=== PATIENT | male | born 1950 | race Caucasian/White ===

== ENCOUNTER 2017-01-06 13:28 | Emergency (ER) | payer MEDICARE, OTHER ==
[2017-01-06] MEDS ORDERED: CYCLOBENZAPRINE HCL 10 MG TAB PO ONE (13:46)
[2017-01-06] MEDS ORDERED: HYDROcodone 10MG/APAP 325MG 1 EA TAB PO ONE (13:46)
[2017-01-06 13:47] VITALS: BP 152/82; TEMP 97.9; O2SAT 94
--- NOTE | 2017-01-06 13:49 | ED.PDOC ---
History of Present Illness - General Chief Complaint: Back Pain or Injury Stated Complaint: BACK PAIN Time Seen by Provider: 01/06/17 13:38 Source: patient, RN notes reviewed, Vital Signs reviewed Exam Limitations: no limitations - History of Present Illness Initial Comments: Patient comes in with c/o low back pain. He has a long history of back issues and reports it occasionally flares up on him. He thinks he has been doing too much lifting. He is having some pain and tingling down both legs but this is fairly typical for when his back hurts. No bowel or bladder incontinence. No leg weakness. Timing/Duration: 1-3 hours Quality/Severity: severe, radiation, sharpness Back Pain Location: lumbar spine, paraspinous muscles Back Pain Radiation: lower legs Method of Injury/Prior Injury: other - Chronic back issues, recently lifting too much. Improving Factors: immobilization Worsening Factors: movement Associated Symptoms: muscle spasms, tingling in legs/feet, lower back pain Allergies/Adverse Reactions: Allergies NO KNOWN ALLERGY Allergy (Verified 01/06/17 13:43) Home Medications: Ambulatory Orders Acetaminophen W/ Codeine [Tylenol W/ CODEINE #3] 1 ea PO Q6HRS PRN #12 Cyclobenzaprine HCl [Flexeril] 5 mg PO Q8HRS PRN #12 tab 01/06/17 Review of Systems - Review of Systems Constitutional: States: no symptoms reported EENTM: States: no symptoms reported Respiratory: States: no symptoms reported Cardiology: States: no symptoms reported Gastrointestinal/Abdominal: States: no symptoms reported Genitourinary: States: no symptoms reported Musculoskeletal: States: see HPI, back pain Skin: States: no symptoms reported Neurological: States: see HPI, tingling. Denies: numbness, paresthesia Endocrine: States: no symptoms reported Hematologic/Lymphatic: States: no symptoms reported Family Medical History - Family History Mother Family History: Unknown Physical Exam - Physical Exam General Appearance: Alert, Well Developed, Well Hydrated, Well Nourished, Other - uncomfortable, in obvious pain Neck Exam: non-tender, full range of motion, normal alignment, normal inspection Cardiovascular/Respiratory: regular rate, rhythm, no M/R/G, normal peripheral pulses, no JVD, normal breath sounds, no respiratory distress Peripheral Pulses: posterior tibialis,right: 2+, posterior tibialis,left: 2+ Back Exam: muscle spasm - Bilateral lumbar paraspinous muscles, vertebral tenderness - Lower lumbosacral spine Extremity Exam: no evidence of injury, normal range of motion, non-tender, no pedal edema Neurologic: no motor/sensory deficits, alert, normal mood/affect, oriented x 3, other - negative straight leg raise bilaterally Skin Exam: normal color, warm/dry Progress - Progress Progress: 01/06/17 14:18 Patient is feeling better after Ravia and Flexeril and would like to go home. Departure - Departure Clinical Impression: Low back pain radiating down leg Time of Disposition: 14:19 Disposition: Discharge to Home or Self Care Condition: Good Departure Forms: ED Discharge - Pt. Copy, Patient Portal Self Enrollment Instructions: DI for Back Pain With Sciatica Diet: resume usual diet Activity: increase activity as tolerated Prescriptions: Acetaminophen W/ Codeine [Tylenol W/ CODEINE #3] 1 ea PO Q6HRS PRN #12 PRN Reason: Pain -- Moderate To Severe Cyclobenzaprine HCl [Flexeril] 5 mg PO Q8HRS PRN #12 tab PRN Reason: Muscle Spasms Home Medications: Ambulatory Orders Acetaminophen W/ Codeine [Tylenol W/ CODEINE #3] 1 ea PO Q6HRS PRN #12 Cyclobenzaprine HCl [Flexeril] 5 mg PO Q8HRS PRN #12 tab 01/06/17
== END 2017-01-06 14:30 | disposition home or self-care (01) ==
LOC: ER 13:28
DX: M54.42 Lumbago with sciatica, left side (principal); M54.41 Lumbago with sciatica, right side

== ENCOUNTER → 2018-11-02 | Outpatient (CLI) | payer MEDICARE ==
--- NOTE | 2018-11-01 09:32 | RAD ---
EXAM DESCRIPTION: Chest,2 Views CLINICAL HISTORY: pre op COMPARISON: Previous chest x-ray December 24, 2008 TECHNIQUE: PA/lateral FINDINGS: Linear densities in the left upper lobe extending peripherally from the hilum having appearance consistent with fibrosis or bronchiectasis. Left paracardiac density is thought to represent rib cartilage calcification of the anterior end of the left fifth rib. Minimal scarring or discoid atelectasis in the medial left lung base behind the heart. Plate and screws of the lower C-spine. Few granulomas in the right mid and lower lung. Heart size is normal with normal pulmonary vascularity. No pleural effusion or pneumothorax. Lungs are clear with no consolidating infiltrate. Lateral view shows intact sternum and T-spine. IMPRESSION: No acute process is identified in the chest. Electronically signed by: Jone Pisano MD 11/01/2018 9:30 AM [facility]
== END ==
LOC: AMB 05:44 → EDSTATUS 08:00
PROVIDERS: ATTEND Surgery
DX: K40.90 Unilateral inguinal hernia, without obstruction or gangrene, not specified as recurrent (principal); Z53.8 Procedure and treatment not carried out for other reasons

== ENCOUNTER 2018-11-05 22:06 | Emergency (ER) | payer MEDICARE ==
[2018-11-05 22:21] VITALS: TEMP 98.3
--- NOTE | 2018-11-05 22:21 | ED.PDOC ---
History of Present Illness - General Time Seen by Provider: 11/05/18 22:17 Source: patient, RN notes reviewed, Vital Signs reviewed Additional Information: 68 YEAR OLD PRESENTS WITH CHEST PAIN LAST 30 MIN " FEEL LIKE INDIGESTION " IT IS LIMITED TO THE SUB STERNUM NO RADIATION BUT HE HAD FELT SHORT OF BREATH HE HAS HAD SIMILAR PROBLEM LAST WEEK HIS CAD RISK INCLUDE HEAVY SMOKING HYPERTENSION STRONG FAMILY HISTORY - History of Present Illness Timing/Duration: 1/2 hour Improving Factors: nothing Worsening Factors: nothing Associated Symptoms: chest pain Allergies/Adverse Reactions: Allergies NO KNOWN ALLERGY Allergy (Verified 01/06/17 13:43) Home Medications: Ambulatory Orders Acetaminophen W/ Codeine [Tylenol W/ CODEINE #3] 1 ea PO Q6HRS PRN #12 01/06/17 Cyclobenzaprine HCl [Flexeril] 5 mg PO Q8HRS PRN #12 tab 01/06/17 Review of Systems - Review of Systems Constitutional: States: no symptoms reported EENTM: States: no symptoms reported Respiratory: States: no symptoms reported Cardiology: States: no symptoms reported Gastrointestinal/Abdominal: States: no symptoms reported Genitourinary: States: no symptoms reported Skin: States: no symptoms reported Neurological: States: no symptoms reported Endocrine: States: no symptoms reported Hematologic/Lymphatic: States: no symptoms reported Past Medical History (General) - Patient Medical History Hx Asthma: No Hx of COPD: Yes Hx Cancer: No - Vaccination History Hx Tetanus, Diphtheria Vaccination: Yes Hx Influenza Vaccination: No Hx Pneumococcal Vaccination: No - Social History Hx Alcohol Use: Yes - FORMER Hx Substance Use: No Family Medical History - Family History Mother Family History: Unknown Physical Exam - Physical Exam General Appearance: Alert, Anxious Eye Exam: bilateral normal, bilateral abnormal EOM Ears, Nose, Throat: hearing grossly normal, normal ENT inspection, normal pharynx Neck: non-tender, full range of motion, supple Respiratory: chest non-tender, lungs clear, normal breath sounds, no respiratory distress, no accessory muscle use, respiratory distress, rhonchi Cardiovascular/Chest: normal peripheral pulses, regular rate, rhythm, no edema, no gallop, no JVD, no murmur Gastrointestinal/Abdominal: normal bowel sounds, non tender, soft, no organomegaly, abnormal bowel sounds Back Exam: normal inspection, no CVA tenderness, no vertebral tenderness Extremity: normal range of motion, non-tender, normal inspection 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, no motor/sensory deficits, alert, normal mood/affect, oriented x 3 Progress - Results/Orders Results/Orders: Laboratory Tests 11/05/18 11/06/18 22:35 00:50 WBC 6.6 RBC 4.73 Hgb 13.8 L Hct 41.9 L MCV 88.6 MCH 29.1 MCHC 33.0 RDW 13.7 Plt Count 283 MPV 6.7 L Absolute Neuts (auto) 4.20 Absolute Lymphs (auto) 1.50 Absolute Monos (auto) 0.60 Absolute Eos (auto) 0.20 Absolute Basos (auto) 0.10 Neutrophils % 64.0 Lymphocytes % 22.2 Monocytes % 9.8 H Eosinophils % 3.2 Basophils % 0.8 PT 10.0 INR 1.00 PTT (SP) 29.5 Sodium 137 Potassium 3.4 L Chloride 104 Carbon Dioxide 27 Anion Gap 9.4 L BUN 12 Creatinine 0.76 BUN/Creatinine Ratio 15.8 Random Glucose 105 Serum Osmolality 273.9 L Calcium 8.7 Magnesium 1.8 Total Bilirubin 0.4 Direct Bilirubin < 0.1 Indirect Bilirubin 0.3 AST 22 ALT 17 Alkaline Phosphatase 47 Creatine Kinase 191 H 185 H CK-MB (CK-2) 4.1 4.0 CK-MB (CK-2) % 2.15 2.16 Troponin I 0.02 0.03 Serum Total Protein 6.5 Albumin 3.6 Globulin Cancelled Albumin/Globulin Ratio Cancelled 1.45 AM PT LABS WERE REVIEWED SECOND SET OF TROPONIN IS 0.03 FROM O.02 RECOMMENDED FOR HIM TO BE TRANSFERED TO [facility] FOR A CARDIOLOGY CONSULTATION AND STRESS TEST IN THE MORNING BUT PATIENT DECLINED STATING HE WAS NOT GOING TO GO THERE TONIGHT AND HE WOULD RATHER GO IN THE MORNING ASK HIS TO DRIVE HIM UP THERE HE HAS REMAINED PAIN FREE IN THE ED I HAVE EXPLAINED TO HIM THE POSSIBILITY OF ACUTE [place] SUDDEN AND GRAVE COMP LICATIONS OF THIS CONDITION HE UNDERSTANDS WOULD LIKE TO LEAVE AMA FOR NOW WE WILL PROVIDE A NITROGLYCERIN TRANS DERMAL PATCH AND ADVISED HIM TO RETURN IF HE DEVELOPS ANY SYMPTOMS OF CHEST PAIN OT SHORTNESS OF BREATH - EKG/XRAY/CT EKG: Sinus, nonspecific ST T wave Ch Comments: 22.12 ekg nsr 87 / min non specific st t changes No acute Injury Ischem Departure - Departure Clinical Impression: Chest pain Time of Disposition: 01:51 Disposition: Left Against Medical Advice Condition: Good Home Medications: Ambulatory Orders Acetaminophen W/ Codeine [Tylenol W/ CODEINE #3] 1 ea PO Q6HRS PRN #12 01/06/17 Cyclobenzaprine HCl [Flexeril] 5 mg PO Q8HRS PRN #12 tab 01/06/17
[2018-11-05] MEDS ORDERED: NITROGLYCERIN 0.4 MG 25 EA TAB SL ONE ×2 (22:24→22:42)
[2018-11-05] MEDS ORDERED: ASPIRIN (CHEWABLE) 81 MG TAB PO ONE (22:24)
[2018-11-05] MEDS ORDERED: KETOROLAC TROMETHAMINE INJ 30 MG/ML VIAL IV ONE (22:38)
[2018-11-05] MEDS ORDERED: ALUM & MAG HYDROX-SIMETHICONE 30 ML, LIDOCAINE VISCOUS 2% 15 ML PO ONE ×2 (22:38)
[2018-11-05] MEDS ORDERED: SUCRALFATE 1 GM/10 ML 1 GM UD PO ONE (22:39)
[2018-11-05] MEDS ORDERED: LIDOCAINE HCL 2% (MOUTH-THROAT) 15 ML UD ONE (23:01)
[2018-11-05] MEDS ORDERED: ALUM & MAG HYDROX-SIMETHICONE 30 ML UD ONE (23:01)
--- NOTE | 2018-11-05 23:31 | RAD ---
EXAM DESCRIPTION: Chest,1 View CLINICAL HISTORY: 68 years Male CHEST PAIN COMPARISON: 11/01/2018 FINDINGS: The cardiomediastinal silhouette appears unremarkable. No consolidating infiltrates or pleural effusions. No pneumothorax. Degenerative changes in the thoracic spine. Post surgical changes in the cervical spine. IMPRESSION: No acute abnormality is identified. Electronically signed by: Libby Jesus MD 11/05/2018 11:30 PM [facility]
[2018-11-06 00:17] VITALS: O2SAT 96
[2018-11-06 01:48] VITALS: BP 138/84
[2018-11-06] MEDS ORDERED: NITROGLYCERIN 0.1 MG/HR PATCH TD ONE (01:50)
[2018-11-06] MEDS ORDERED: NITROGLYCERIN 0.2 MG/HR PATCH TD ONE ×2 (01:51→01:54)
== END 2018-11-06 01:45 | disposition left against medical advice (07) ==
LOC: ER 22:06
DX: R07.2 Precordial pain (principal); I25.10 Atherosclerotic heart disease of native coronary artery without angina pectoris; I10 Essential (primary) hypertension; F17.200 Nicotine dependence, unspecified, uncomplicated; J44.9 Chronic obstructive pulmonary disease, unspecified; Z53.29 Procedure and treatment not carried out because of patient's decision for other reasons
CPT/HCPCS: 36415; 71045; 80048; 80076; 82550; 82553; 84484; 85025; 85610; 85730; J1885

== ENCOUNTER → 2018-12-14 | Outpatient (CLI) | payer MEDICARE, OTHER ==
--- NOTE | 2018-12-14 16:55 | CT ---
Procedure: CT LUNG SCREENING Exam Date: 12/14/2018. Ordering Provider: Trey Ansari Clinical Indication: PERSONAL HX OF TOBACCO USE smoking 61 years. Smokes 1 pack cigarettes every 4 days. This patient meets eligibility criteria for low-dose CT lung cancer screening. Comparison: None. Technique: Using a multislice scanner, sequential helical axial imaging was obtained in the thorax, 2.5 mm thickness, 2.5 mm separation, from the level of the thoracic inlet through the lung bases without IV contrast. A low dose protocol was utilized: CTDI: 1.75 mGy. 120. kVp. 45 mA. 2D sagittal and coronal reconstructed images, 6.0 mm thickness, were obtained. This exam was performed according to our departmental dose optimization program which includes use of automated exposure control, adjustment of the mA and/or kV according to patient size and/or use of iterative reconstruction technique. Nodule measurements under 10 mm are given as mean value of 3 axes diameters. FINDINGS: Lungs and large airways: Region of dilated airspaces in thickened septa posterior left upper lobe near the apex. Similar pattern seen in the anterior lateral left upper lobe, lateral left lower lobe, and early findings of similar process lateral right upper lobe. Bibasilar dependent atelectasis. 4 mm calcified nodule right lower lobe axial series 2 image 74. Calcified nodule 3 mm right middle lobe near the major fissure on image 69. Pleura and space: Bilateral multiple areas of focal thickening with no effusion or pneumothorax. Mediastinum and rajiv: evaluation limited by low dose technique and lack of IV contrast. No significantly enlarged lymph nodes or soft tissue masses. Heart and great vessels: Atherosclerotic calcification brachiocephalic vessels, aortic arch and descending thoracic aorta, and coronary vessels. Chest wall, lower neck, axillae: Evaluation also limited by same factors as described above. Normal sized lymph nodes bilateral axilla. Other soft tissues appear symmetric. Thyroid partially obscured by artifact from surgical hardware in the spine. Upper abdomen: No free air or fluid in the included peritoneal space. No fatty stranding. Abdominal aortic atherosclerotic calcification. Osseous structures: Evaluation limited by low dose MIP technique. Multiple levels of spondylosis thoracic spine. No lytic or blastic lesions. IMPRESSION: Bilateral regions of dilated airspaces and thickened septa mostly peripheral and more in the left upper lobe compared to the left lower lobe and right lung. No abnormal nodules or masses. No focal infiltrates. [facility] Best Practice guidelines:. Please see below for Lung RADS category and FOLLOW-UP.* *Lung RADS category Category 1 - No nodule or definitely benign nodules (probability of malignancy less than 1%). Follow-up: Continue annual screening with Low Dose Chest CT in 12 months. Electronically signed by: Adolph Booker MD 12/14/2018 4:52 PM [facility]
== END ==
LOC: CT 11:38
PROVIDERS: ATTEND Family Medicine
DX: Z87.891 Personal history of nicotine dependence (principal)

== ENCOUNTER → 2019-01-19 | Outpatient (CLI) | payer MEDICARE, OTHER ==
--- NOTE | 2019-01-22 04:52 | US ---
Procedure: US CAROTID DOPPLER BILATERAL Exam Date: 01/19/2019 Ordering Provider: Juvencio Johnson Clinical Indication: CORONARY ARTERIOSCLEROSIS Comparison: None TECHNIQUE : Real-time cerebrovascular ultrasonography was obtained from sternal notch to the angle of the mandible bilaterally utilizing pichardo scale, color flow and spectral Doppler analysis. Systolic velocity ratios were calculated for internal carotid artery to common carotid artery bilaterally. FINDINGS: RIGHT CAROTID BIFURCATION: Significant atherosclerotic plaque. Peak systolic and end-diastolic velocities in the right internal carotid artery are 97 and 31 cm/s. Internal carotid/common carotid ratio is 1.0. Right vertebral flow is antegrade. LEFT CAROTID BIFURCATION: Significant atherosclerotic plaque. Peak systolic and end-diastolic velocities in the left internal carotid artery are 81 and 25 cm/s. Internal carotid/common carotid ratio is 0.9. Left vertebral flow is antegrade. IMPRESSION: 1. Significant atherosclerotic plaque in each carotid bulb and ICA origin. 2. There is no significant stenosis (less than 50%) at either ICA origin. 3. Bilateral antegrade vertebral artery flow. Electronically signed by: Harshal Martinez MD 01/22/2019 4:49 AM CDT
== END ==
LOC: US 16:57
PROVIDERS: ATTEND Family Medicine
DX: I25.10 Atherosclerotic heart disease of native coronary artery without angina pectoris (principal); I65.23 Occlusion and stenosis of bilateral carotid arteries

== ENCOUNTER 2019-04-05 12:32 | Emergency (ER) | payer MEDICARE, OTHER ==
[2019-04-05] MEDS ORDERED: SODIUM CHLORIDE 0.9% (FLUSH) 10 ML SYG IV PRN (12:39)
[2019-04-05] MEDS ORDERED: ASPIRIN TABLET 325 MG TAB PO ONE (12:39)
[2019-04-05] MEDS ORDERED: ONDANSETRON INJ 4 MG/2 ML VIAL IV ONE (12:39)
[2019-04-05] MEDS ORDERED: NITROGLYCERIN 0.4 MG 25 EA TAB SL ONE (12:39)
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
[2019-04-05] MEDS ORDERED: SODIUM CHLORIDE 0.9% 500ML 500 ML IVS ONE (12:51)
[2019-04-05] MEDS ORDERED: fentaNYL CITRATE INJ 50 MCG/ML AMP IV ONE (12:52)
[2019-04-05] MEDS ORDERED: PROCHLORPERAZINE INJ 10 MG/2 ML VIAL IV ONE (12:53)
--- NOTE | 2019-04-05 12:59 | RAD ---
EXAM DESCRIPTION: Chest,1 View CLINICAL HISTORY: 68 years Male, pain COMPARISON: Previous study November 05, 2018 TECHNIQUE: AP portable chest. FINDINGS: Heart size is prominent with normal pulmonary vascularity. Interstitial infiltrate in the left upper lobe is seen which could be acute or chronic. Fibrotic changes could produce this appearance. Density is somewhat more prominent than on previous study. No pulmonary mass or worrisome nodule. No pneumothorax or pleural effusion. Bones are unremarkable. IMPRESSION: Interstitial infiltrate in the left upper lobe. Electronically signed by: Jone Pisano MD 04/05/2019 12:57 PM CDT
--- NOTE | 2019-04-05 13:36 | CT ---
EXAM DESCRIPTION: Head CLINICAL HISTORY: headache COMPARISON: None available TECHNIQUE: Contiguous axial images through the head were obtained without intravenous contrast administration. Sagittal and coronal reconstructions were reviewed. FINDINGS: No evidence of acute major vascular territorial infarct or intraparenchymal hemorrhage. No intra-axial or extra-axial fluid collections are identified. The ventricles and cisterns appear normal in caliber. The sella and suprasellar regions appear normal. The structures of the posterior fossa are intact. The globes are intact bilaterally. The visualized paranasal sinuses and mastoid air cells are well-aerated. Review of the bones demonstrates no gross instability. IMPRESSION: No CT evidence of acute intracranial process. This exam was performed according to our departmental dose-optimization program, which includes automated exposure control, adjustment of the mA and/or kV according to patient size and/or use of iterative reconstruction technique. Electronically signed by: Ana Shipley MD 04/05/2019 1:34 PM CDT
[2019-04-05 16:06] VITALS: BP 139/77; TEMP 97.2; O2SAT 92
== END 2019-04-05 15:59 | disposition home or self-care (01) ==
LOC: ER 12:32
DX: J84.9 Interstitial pulmonary disease, unspecified (principal); R07.9 Chest pain, unspecified; R51 Headache; J44.9 Chronic obstructive pulmonary disease, unspecified; I51.9 Heart disease, unspecified; Z79.899 Other long term (current) drug therapy; Z79.82 Long term (current) use of aspirin; Z95.5 Presence of coronary angioplasty implant and graft; Z87.891 Personal history of nicotine dependence
CPT/HCPCS: 36415; 70450; 71045; 80048; 82550; 82553; 83880; 84484; 85025; 85610; 85730; 93005; 94760; J0780; J2405; J3010; J7040

== ENCOUNTER 2019-04-29 02:10 | Emergency (ER) | payer MEDICARE, OTHER ==
[2019-04-29] MEDS ORDERED: ONDANSETRON INJ 4 MG/2 ML VIAL ONE (02:20)
[2019-04-29] MEDS ORDERED: ALUM & MAG HYDROX-SIMETHICONE 30 ML, LIDOCAINE VISCOUS 2% 15 ML PO ONE ×2 (02:21)
[2019-04-29] MEDS ORDERED: ONDANSETRON ODT 8 MG TAB SL ONE (02:21)
[2019-04-29] MEDS ORDERED: LIDOCAINE HCL 2% (MOUTH-THROAT) 15 ML UD ONE (02:23)
[2019-04-29] MEDS ORDERED: ALUM & MAG HYDROX-SIMETHICONE 30 ML UD ONE (02:24)
[2019-04-29] MEDS ORDERED: ONDANSETRON INJ 4 MG/2 ML VIAL IV ONE (02:29)
[2019-04-29 02:34] VITALS: TEMP 95.7
--- NOTE | 2019-04-29 03:28 | RAD ---
EXAM: XR Abdomen 2 Views With XR Chest CLINICAL HISTORY: The patient is 68 years old and is Male; chest pain, nausea TECHNIQUE: Frontal view of the chest, frontal view of the abdomen/pelvis and upright or decubitus view of the abdomen. COMPARISON: Chest radiograph April 05, 2019. FINDINGS: LUNGS: The lungs are hyperinflated with chronic coarse interstitial markings. There is no lobar consolidation. PLEURAL SPACE: Unremarkable. No pneumothorax. HEART: Unremarkable. No cardiomegaly. MEDIASTINUM: Unremarkable. INTRAPERITONEAL SPACE: No free air. GASTROINTESTINAL TRACT: A moderate amount of stool is present throughout the colon. Distal stool and air are noted. No dilated loops of bowel are seen. No abnormal calcifications or soft tissue masses are noted. BONES/JOINTS: Minimal degenerative change of the bones is present. IMPRESSION: No acute cardiopulmonary process. Nonobstructive bowel gas pattern. Electronically signed by: Corie Restrepo MD 04/29/2019 3:27 AM CDT
--- NOTE | 2019-04-29 05:26 | ED.PDOC ---
History of Present Illness - General Chief Complaint: Chest Pain/MD Stated Complaint: Chest pain Time Seen by Provider: 04/29/19 02:13 Source: patient Exam Limitations: no limitations - History of Present Illness Initial Comments: the patient is a 68-year-old male presenting to the emergency room secondary to acute onset chest pain started while he was asleep. It did wake him from his sleep. He reported that it was very significant. He took 2 of his nitroglycerin. This did drop his blood pressure down to the 80s on the systolic end. EMS gave him a liter of IV fluids which did bring the blood pressure back up as well as of course the wearing off the nitroglycerin. By the time the nitroglycerin wore off the chest pain was largely resolved. By the time he arrived here he was not having any chest pain. He had a similar episode like this about a month ago. He refused admission for observation at that time. He does see Dr. Fitzgerald in [place]. He has had stents in the past. He does have a significant history of gastritis and reflux. Timing/Duration: 1/2 hour Severity: moderate Improving Factors: medication Worsening Factors: nothing Associated Symptoms: denies symptoms Allergies/Adverse Reactions: Allergies NO KNOWN ALLERGY Allergy (Verified 04/29/19 02:41) Home Medications: Ambulatory Orders Aspirin [Aspirin Childrens] 81 mg PO DAILY 04/05/19 Clopidogrel Bisulfate 75 mg PO DAILY 04/05/19 Metoprolol Succinate [Metoprolol Succinate ER] 25 mg PO BEDTIME 04/05/19 Nitroglycerin 0.4 mg Tab [Nitrostat] 1 ea SL .Q5M PRN #1 bottle 04/05/19 Ropinirole Hydrochloride [Ropinirole HCl] 1 mg PO BEDTIME 04/05/19 Sucralfate Tab [Carafate Tab] 1 gm PO QID #120 tab 04/29/19 Review of Systems - Review of Systems Constitutional: States: no symptoms reported EENTM: States: no symptoms reported Respiratory: States: no symptoms reported Cardiology: States: chest pain Gastrointestinal/Abdominal: States: no symptoms reported Genitourinary: States: no symptoms reported Musculoskeletal: States: no symptoms reported Skin: States: no symptoms reported Neurological: States: no symptoms reported Endocrine: States: no symptoms reported All other Systems: No Change from Baseline Past Medical History (General) - Patient Medical History Hx Seizures: No Hx Stroke: No Hx Dementia: No Hx Asthma: No Hx of COPD: No Hx Cardiac Disorders: Yes - Hx MD Hx Congestive Heart Failure: No Hx Pacemaker: No Hx Hypertension: No Hx Thyroid Disease: No Hx Diabetes: No Hx Gastroesophageal Reflux: No Hx Renal Disease: No Hx Cancer: No Hx of HIV: No Hx Hepatitis C: No Hx MRSA: No - Vaccination History Hx Tetanus, Diphtheria Vaccination: Yes Hx Influenza Vaccination: No Hx Pneumococcal Vaccination: No - Social History Hx Tobacco Use: Yes Hx Alcohol Use: Yes - FORMER Hx Substance Use: No Family Medical History - Family History Mother Family History: Unknown Hx Cardiac Disease: Yes - mom Hx Family Cancer: Yes - dad-colon;mom-lung Physical Exam - Physical Exam General Appearance: Alert, No apparent distress Eye Exam: bilateral normal Ears, Nose, Throat: hearing grossly normal, normal ENT inspection Neck: full range of motion, supple Respiratory: chest non-tender, lungs clear, normal breath sounds, no respiratory distress, no accessory muscle use Cardiovascular/Chest: normal peripheral pulses, regular rate, rhythm, no edema Peripheral Pulses: radial,right: 2+, radial,left: 2+, dorsalis pedis,right: 2+, dorsalis pedis,left: 2+ Gastrointestinal/Abdominal: non tender, soft Rectal Exam: deferred Back Exam: no CVA tenderness, no vertebral tenderness Extremity: normal range of motion, non-tender, normal inspection, no pedal edema, normal capillary refill 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 The chest pain had resolved by the time he arrived here. He did have a similar episode about 3 weeks ago. Initial and repeat set of cardiac enzymes at 3 hours show no evidence of any rise of the heart enzymes. EKG is consistent with previous EKGs. It has been recommended that the patient stay for 24-hour observation. The patient has deferred this. He will be leaving AGAINST MEDICAL ADVICE. He does need to continue his normal cardiac medications and I'm going to add Carafate to his medication regimen for the next 2-3 weeks. It is possible, given the timing of his chest pain episodes, that this may be coming from reflux. 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 He does need to keep his nitroglycerin with him. ER warnings were given for any worsening. Follow up with primary care doctor later this coming week. - Results/Orders Results/Orders: 04/29/19 02:30 EKG STAT 04/29/19 05:31 URINE DRUG SCREEN, 7 ASSAY Stat UA [URINALYSIS] Stat Laboratory Results - last 24 hr 04/29/19 04/29/19 04/29/19 02:22 02:22 02:22 WBC 7.9 RBC 4.67 L Hgb 14.1 Hct 41.4 L MCV 88.6 MCH 30.3 MCHC 34.1 RDW 13.8 Plt Count 277 MPV 7.1 L Absolute Neuts (auto) 5.00 Absolute Lymphs (auto) 1.90 Absolute Monos (auto) 0.70 Absolute Eos (auto) 0.20 Absolute Basos (auto) 0.10 Neutrophils % 62.9 Lymphocytes % 24.4 Monocytes % 8.8 Eosinophils % 3.1 Basophils % 0.8 PT 10.6 INR 1.06 PTT (SP) 27.6 D-Dimer, Quantitative 0.33 Sodium 136 Potassium 3.7 Chloride 103 Carbon Dioxide 24 Anion Gap 12.7 BUN 27 H Creatinine 1.08 BUN/Creatinine Ratio 25.0 H Random Glucose 114 H Serum Osmolality 277.9 Calcium 9.2 Magnesium 2.0 Total Bilirubin 0.4 AST 31 ALT 35 Alkaline Phosphatase 44 Creatine Kinase 175 H CK-MB (CK-2) 3.5 CK-MB (CK-2) % Not Reportable Troponin I < 0.02 B-Natriuretic Peptide 36.1 Serum Total Protein 6.5 Albumin 3.7 Globulin 2.8 Albumin/Globulin Ratio 1.3 Amylase 78 Lipase 59 H 04/29/19 04:56 WBC RBC Hgb Hct MCV MCH MCHC RDW Plt Count MPV Absolute Neuts (auto) Absolute Lymphs (auto) Absolute Monos (auto) Absolute Eos (auto) Absolute Basos (auto) Neutrophils % Lymphocytes % Monocytes % Eosinophils % Basophils % PT INR PTT (SP) D-Dimer, Quantitative Sodium Potassium Chloride Carbon Dioxide Anion Gap BUN Creatinine BUN/Creatinine Ratio Random Glucose Serum Osmolality Calcium Magnesium Total Bilirubin AST ALT Alkaline Phosphatase Creatine Kinase 163 CK-MB (CK-2) 3.3 CK-MB (CK-2) % Not Reportable Troponin I < 0.02 B-Natriuretic Peptide Serum Total Protein Albumin Globulin Albumin/Globulin Ratio Amylase Lipase EKG shows normal sinus rhythm at 71 bpm.normal axis. Normal R-wave progression. Old J-point elevation in V1 and V2. Borderline short MT. Borderline criteria for LVH. No definitive ST segment or T-wave changes indicative of ischemia otherwise. Acute abdominal series fails to show any acute pathology.it does show some constipation. Departure - Departure Clinical Impression: Atypical chest pain Disposition: Left Against Medical Advice Condition: Fair Departure Forms: ED Discharge - Pt. Copy, Patient Portal Self Enrollment Instructions: DI for Chest Pain Diet: bland diet Activity: increase activity as tolerated Referrals: Juvencio Johnson MD [Primary Care Provider] - 1-2 Weeks Prescriptions: Sucralfate Tab [Carafate Tab] 1 gm PO QID #120 tab Home Medications: Ambulatory Orders Aspirin [Aspirin Childrens] 81 mg PO DAILY 04/05/19 Clopidogrel Bisulfate 75 mg PO DAILY 04/05/19 Metoprolol Succinate [Metoprolol Succinate ER] 25 mg PO BEDTIME 04/05/19 Nitroglycerin 0.4 mg Tab [Nitrostat] 1 ea SL .Q5M PRN #1 bottle 04/05/19 Ropinirole Hydrochloride [Ropinirole HCl] 1 mg PO BEDTIME 04/05/19 Sucralfate Tab [Carafate Tab] 1 gm PO QID #120 tab 04/29/19 Additional Instructions: the patient's a 68-year-old male presents secondary to abrupt onset chest pain while sleeping. The chest pain had resolved by the time he arrived here. He did have a similar episode about 3 weeks ago. Initial and repeat set of cardiac enzymes at 3 hours show no evidence of any rise of the heart enzymes. EKG is consistent with previous EKGs. It has been recommended that the patient stay for 24-hour observation. The patient has deferred this. He will be leaving AGAINST MEDICAL ADVICE. He does need to continue his normal cardiac m edications and I'm going to add Carafate to his medication regimen for the next 2-3 weeks. It is possible, given the timing of his chest pain episodes, that this may be coming from reflux. 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 He does need to keep his nitroglycerin with him. ER warnings were given for any worsening. Follow up with primary care doctor later this coming week.
[2019-04-29 05:54] VITALS: O2SAT 97
[2019-04-29 06:53] VITALS: BP 95/54
== END 2019-04-29 06:52 | disposition left against medical advice (07) ==
LOC: ER 02:10
DX: R07.89 Other chest pain (principal); I25.2 Old myocardial infarction; K21.9 Gastro-esophageal reflux disease without esophagitis; Z53.29 Procedure and treatment not carried out because of patient's decision for other reasons; Z87.891 Personal history of nicotine dependence; Z79.82 Long term (current) use of aspirin; Z79.899 Other long term (current) drug therapy; Z87.19 Personal history of other diseases of the digestive system
CPT/HCPCS: 36415; 74019; 80053; 82150; 82550; 82553; 83690; 83735; 83880; 84484; 85025; 85379; 85610; 85730; 93005; J2405

== ENCOUNTER → 2020-02-26 | Outpatient (CLI) | payer MEDICARE, OTHER ==
--- NOTE | 2020-02-26 15:17 | CT ---
Procedure: CT LUNG SCREENING Exam Date: 26 Feb 2020. Ordering Provider: Trey Ansari Clinical Indication: PERSONAL HISTORY OF TOBACCO USE . Current cigarette smoker. 23 pack years. This patient meets eligibility criteria for low-dose CT lung cancer screening. Comparison: 14 December 2018. Technique: Using a multislice scanner, sequential helical axial imaging was obtained in the thorax, 2.5 mm thickness, 2.5 mm separation, from the level of the thoracic inlet through the lung bases without IV contrast. A low dose protocol was utilized for BMI less than 30: BMI: 23. CTDI: 1.75 mGy. 120. kVp. 45 mA. DLP 61 mGy-cm. 2D sagittal and coronal reconstructed images, 6.0 mm thickness, were obtained. This exam was performed according to our departmental dose optimization program which includes use of automated exposure control, adjustment of the mA and/or kV according to patient size and/or use of iterative reconstruction technique. Nodule measurements under 10 mm are given as mean value of 3 axes diameters. FINDINGS: Lungs and large airways: Peripheral honeycombing lung process in the superior segment left lower lobe, all segments of the left upper lobe. Bilateral small parenchymal blebs more prevalent in the upper lobes. This has not progressed since the prior study. Stable 4 mm calcified nodule in the lateral base of the right middle lobe abutting the major fissure. Stable 4 mm calcified nodule posterior and inferior right lower lobe. Bilateral focal thickening of the fissures but no abnormal nodules. Pleura and space: Bilateral thickening but no effusion or pneumothorax. Mediastinum and rajiv: evaluation limited by low dose technique and lack of IV contrast. Small nodes are stable with no dominant soft tissue masses. Heart and great vessels: Atherosclerotic calcifications in the coronary arteries, thoracic arch and descending aorta. Chest wall, lower neck, axillae: Evaluation also limited by same factors as described above. Negative. Upper abdomen: Evaluation limited by low-dose technique. No free air or free fluid in the included peritoneal space. Atherosclerotic arterial calcifications. Osseous structures: Evaluation limited by low dose MIP technique. Mid thoracic spondylosis. Minimal glenohumeral and sternoclavicular arthrosis. ACDF in some segments of the cervical spine. IMPRESSION: 1. Chronic honeycombing interstitial process in the periphery of the left upper lobe and left lower lobe with no interval change since the prior study. Focal pleural thickening. Calcified granulomas in the right lung. No abnormal nodules, no masses.. [facility] Best Practice Recommendations: please see below for Lung RADS category and FOLLOW-UP.* *Lung RADS category Category 1 - No nodule or definitely benign nodules (probability of malignancy less than 1%). Follow-up: Continue annual screening with Low Dose Chest CT in 12 months. Electronically signed by: Adolph Booker MD 02/26/2020 3:15 PM CDT
== END ==
LOC: CT 10:00
PROVIDERS: ATTEND Family Medicine
DX: Z87.891 Personal history of nicotine dependence (principal); R91.8 Other nonspecific abnormal finding of lung field; J84.10 Pulmonary fibrosis, unspecified

== ENCOUNTER 2020-05-08 06:13 | Day surgery (SDC) | payer MEDICARE ==
[2020-05-08] MEDS ORDERED: LIDOCAINE 1% 10 ML VIAL INJ ONE (07:00)
[2020-05-08] MEDS ORDERED: DEXAMETHASONE INJ 10 MG/ML VIAL ONE (07:00)
[2020-05-08] MEDS ORDERED: ONDANSETRON INJ 4 MG/2 ML VIAL ONE (07:00)
[2020-05-08] MEDS ORDERED: PROPOFOL 200 MG/20 ML VIAL IV ONE (07:00)
[2020-05-08] MEDS ORDERED: BUPIVACAINE 0.5% W/EPI 30 ML VIAL INJ ONE (07:45)
[2020-05-08] MEDS ORDERED: MIDAZOLAM INJ 2 MG/2 ML VIAL ONE (07:57)
[2020-05-08] MEDS ORDERED: fentaNYL CITRATE INJ 50 MCG/ML AMP ONE (07:58)
[2020-05-08] MEDS: LACTATED RINGERS 1,000 ML ONE ×2 (08:18→09:27)
[2020-05-08] MEDS ORDERED: ceFAZolin SODIUM 1 GM VIAL ONE (08:23)
[2020-05-08] MEDS ORDERED: SODIUM CHL 0.9% 100ML MINI-BAG 100 ML IVPB ONE (08:23)
[2020-05-08 11:08] VITALS: BP 128/70; TEMP 97.9; O2SAT 94
--- NOTE | 2020-05-21 11:48 | OP ---
DATE OF PROCEDURE: 05/08/20 PREOPERATIVE DIAGNOSIS: 1. Right inguinal hernia. POSTOPERATIVE DIAGNOSIS: 1. Right inguinal hernia. PROCEDURE: 1. Repair of right inguinal hernia. 3. Ilioinguinal nerve block for postoperative pain control. SURGEON: Gulshan Hebert MD. ANESTHESIA: General and local. FINDINGS: There was a direct hernia with no indirect component. COMPLICATIONS: None. ESTIMATED BLOOD LOSS: Minimal. CONDITION: Stable. PLAN: Discharge. INDICATION: As stated. PROCEDURE: General anesthesia was induced. He was prepped and draped in sterile fashion. An ilioinguinal nerve block was performed making a fan medial to the ASIS. Once this was done, the incision was injected as well. An incision was made and subcutaneous tissues were taken down. The external oblique aponeurosis was identified. A small arcadio was made. It was opened along its fibers. The nerve was identified and kept superiorly out of harm's way. There was some scarring down to the internal ring. This was dissected out and we identified a direct hernia. We could not identify an indirect sac. There was some fat on the cord, but no true sac indirectly. We excised the overlying tissue getting into the preperitoneal plane. We used 3 moist Ray-Manjula sponges and finger sweeps to open the preperitoneal plane. A large PHS mesh was then placed. It was trimmed medially and inferiorly to accommodate position. A cut was made, wrapped around the cord, non-stricturing. It was lying nice and flat and the preperitoneal plane now was externally. It was also secured at the pubic tubercle with a single absorbable suture. More local anesthesia was placed here. The nerve was now safely out the way as we closed with a running 2-0 Vicryl in two additional layers. He tolerated the procedure. The patient was awakened and taken to Recovery to be discharged. #[id number] [facility]
== END 2020-05-08 11:00 | disposition home or self-care (01) ==
LOC: AMB 06:13
PROVIDERS: ATTEND Surgery
DX: K40.90 Unilateral inguinal hernia, without obstruction or gangrene, not specified as recurrent (principal); E78.00 Pure hypercholesterolemia, unspecified; F17.200 Nicotine dependence, unspecified, uncomplicated; I25.2 Old myocardial infarction; Z79.899 Other long term (current) drug therapy; Z79.02 Long term (current) use of antithrombotics/antiplatelets
CPT/HCPCS: 00830; 36415; 49505; 80048; 85025; 93005; J0690; J1100; J2250; J2405; J3010; J3490; J7050; J7120

== ENCOUNTER → 2020-05-26 | Outpatient (CLI) | payer MEDICARE | LOC: LAB.O 11:14 | PROVIDERS: ATTEND Family Medicine | DX: I10 Essential (primary) hypertension (principal); E78.5 Hyperlipidemia, unspecified; R53.83 Other fatigue; Z12.5 Encounter for screening for malignant neoplasm of prostate | CPT/HCPCS: 36415; 80053; 80061; 81001; 84443; 87086; G0103 ==

== ENCOUNTER 2020-07-20 09:55 | Emergency (ER) | payer MEDICARE ==
--- NOTE | 2020-07-20 10:20 | ED.PDOC ---
History of Present Illness - General Chief Complaint: Respiratory Problem Time Seen by Provider: 07/20/20 09:56 Source: patient, RN notes reviewed, Vital Signs reviewed, old records Exam Limitations: no limitations - History of Present Illness Initial Comments: 70 yo male with hx of CAD comes in with one day of shortness of breath and nonproductive cough. States he was exposed to a covid patient at [employer]. no fever, no sore throat, no change in taste or smell. 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 no hx of blood clot. states shortness of breath is constant, not worse with activity or lying flat. no chest pain. Allergies/Adverse Reactions: Allergies NO KNOWN ALLERGY Allergy (Verified 07/20/20 10:41) Home Medications: Ambulatory Orders Aspirin [Aspirin Childrens] 81 mg PO BEDTIME 04/05/19 Clopidogrel Bisulfate 75 mg PO BEDTIME 04/05/19 Nitroglycerin 0.4 mg Tab [Nitrostat] 1 ea SL .Q5M PRN #1 bottle 04/05/19 Ropinirole Hydrochloride [Ropinirole HCl] 2 mg PO BEDTIME 04/05/19 Atorvastatin Calcium [Lipitor] 40 mg PO BEDTIME 05/06/20 Lisinopril 10 mg PO BEDTIME 05/06/20 Metoprolol Succinate [Metoprolol Succinate ER] 25 mg PO BEDTIME 05/06/20 Review of Systems - Review of Systems Constitutional: States: malaise. Denies: chills, fever EENTM: Denies: blurred vision, ear pain, nose congestion, throat pain, mouth pain Respiratory: States: cough, short of breath. Denies: orthopnea Cardiology: Denies: edema, palpitations, syncope Gastrointestinal/Abdominal: Denies: abdominal pain, nausea, vomiting Genitourinary: Denies: dysuria, hematuria Musculoskeletal: Denies: back pain, joint pain, muscle pain, neck pain Skin: Denies: rash Neurological: Denies: headache, numbness, paresthesia, seizure, tingling, tremors, weakness Endocrine: Denies: unexplained weight gain, unexplained weight loss Hematologic/Lymphatic: Denies: blood clots, easy bleeding, easy bruising Past Medical History (General) - Patient Medical History Hx Seizures: No Hx Stroke: No Hx Dementia: No Hx Asthma: No Hx of COPD: No Hx Cardiac Disorders: Yes - Hx VT Hx Congestive Heart Failure: No Hx Pacemaker: No Hx Hypertension: No Hx Thyroid Disease: No Hx Diabetes: No Hx Gastroesophageal Reflux: No Hx Renal Disease: No Hx Cancer: No Hx of HIV: No Hx Hepatitis C: No Hx MRSA: No - Vaccination History Hx Tetanus, Diphtheria Vaccination: Yes Hx Influenza Vaccination: No Hx Pneumococcal Vaccination: No - Social History Hx Tobacco Use: Yes Hx Alcohol Use: Yes - FORMER Hx Substance Use: No Family Medical History - Family History Mother Family History: Unknown Hx Cardiac Disease: Yes - mom Hx Family Cancer: Yes - dad-colon;mom-lung Physical Exam - Physical Exam General Appearance: Alert, Comfortable, No apparent distress, Well Developed, Well Groomed, Well Hydrated, Well Nourished Eyes, Ears, Nose, Throat Exam: normal ENT inspection, TMs normal Neck: non-tender, full range of motion, supple, normal inspection Respiratory: chest non-tender, lungs clear, normal breath sounds, no respiratory distress, no accessory muscle use, other - tachypnea Cardiovascular/Chest: normal peripheral pulses, regular rate, rhythm, no edema, no gallop, no JVD, no murmur Peripheral Pulses: radial,right: 2+, radial,left: 2+ Gastrointestinal/Abdominal: normal bowel sounds, non tender, soft, no pulsatile mass Rectal Exam: deferred Extremity: normal range of motion, non-tender, normal inspection, no pedal edema, no calf tenderness, normal capillary refill 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 I explained the findings of testing and recommend admission. Patient declines every have chest pain. I explained heart disease can present other than chest pain. He states he did have cp 4 days ago which resolved with some nitro. states he just came up here to make sure he doesn't have covid, bc he has a daughter with CP. Has an appointment with cardiology next week. Again I recommended admission for acute cad rule out. He refuses admission. He does agree to let me repeat the troponin. currently he denies any shortness of breath. The data reviewed when caring for this patient included: nurse notes, prior records, etc. The history and assessments from nurses notes were reviewed and considered, and the patient's home medication list was also reviewed and considered. My assessment and the results of testing completed here in the ED were discussed with the patient/family. All questions were answered, and they express understanding of my assessment and the plan. They have been instructed to return if their symptoms worsen, and have been asked to follow up with their primary care physician to recheck today's presenting complaint. Strict return precautions given. Abby Guerra DO #[id number] - Results/Orders Results/Orders: 07/20/20 10:15 EKG STAT Laboratory Results WBC 6.4 K/mm3 (4.8-10.8) 07/20/20 10:35 RBC 4.87 M/mm3 (4.70-6.10) 07/20/20 10:35 Hgb 14.7 gm/dL (14.0-18.0) 07/20/20 10:35 Hct 43.7 % (42.0-52.0) 07/20/20 10:35 MCV 89.8 fl (80.0-94.0) 07/20/20 10:35 MCH 30.2 pg (27.0-31.0) 07/20/20 10:35 MCHC 33.6 g/dL (33.0-37.0) 07/20/20 10:35 RDW 14.0 % (11.5-14.5) 07/20/20 10:35 Plt Count 270 K/mm3 (130-400) 07/20/20 10:35 MPV 7.2 fl (7.40-10.4) L 07/20/20 10:35 Absolute Neuts (auto) 4.10 K/uL (1.8-6.8) 07/20/20 10:35 Absolute Lymphs (auto) 1.40 K/uL (1.0-3.4) 07/20/20 10:35 Absolute Monos (auto) 0.60 K/uL (0.2-0.8) 07/20/20 10:35 Absolute Eos (auto) 0.20 K/uL (0.0-0.4) 07/20/20 10:35 Absolute Basos (auto) 0.10 K/uL (0.0-0.1) 07/20/20 10:35 Neutrophils % 64.2 % (42.0-78.0) 07/20/20 10:35 Lymphocytes % 22.2 % (20.0-50.0) 07/20/20 10:35 Monocytes % 9.1 % (2.0-9.0) H 07/20/20 10:35 Eosinophils % 3.6 % (1.0-5.0) 07/20/20 10:35 Basophils % 0.9 % (0.0-2.0) 07/20/20 10:35 PT 10.4 SECONDS (9.0-10.9) 07/20/20 10:10 INR 1.05 (0.9-1.15) 07/20/20 10:10 PTT (SP) 25.4 SECONDS (21.8-31.6) 07/20/20 10:10 D-Dimer, Quantitative 136.0 ng/ml (131-400) 07/20/20 10:35 Sodium 139 mmol/L (135-145) 07/20/20 10:35 Potassium 4.0 mmol/L (3.6-5.0) 07/20/20 10:35 Chloride 104 mmol/L (101-111) 07/20/20 10:35 Carbon Dioxide 25 mmol/L (21-31) 07/20/20 10:35 Anion Gap 14.0 (12-18) 07/20/20 10:35 BUN 22 mg/dL (7-18) H 07/20/20 10:35 Creatinine 0.79 mg/dL (0.6-1.3) 07/20/20 10:35 BUN/Creatinine Ratio 27.8 (10-20) H 07/20/20 10:35 Random Glucose 166 mg/dL (70-105) H 07/20/20 10:35 Serum Osmolality 284.6 mOsm/L (275-295) 07/20/20 10:35 Calcium 8.6 mg/dL (8.4-10.2) 07/20/20 10:35 Total Bilirubin 0.6 mg/dL (0.2-1.0) 07/20/20 10:35 AST 36 IU/L (10-42) 07/20/20 10:35 ALT 32 IU/L (10-60) 07/20/20 10:35 Alkaline Phosphatase 49 IU/L (42-121) 07/20/20 10:35 Troponin I < 0.02 ng/mL (0.01-0.05) 07/20/20 13:04 B-Natriuretic Peptide 39.9 pg/ml (0-100) 07/20/20 10:35 Serum Total Protein 6.8 gm/dL (6.4-8.2) 07/20/20 10:35 Albumin 4.1 g/dl (3.2-5.5) 07/20/20 10:35 Globulin 2.7 gm/dL (2.3-3.5) 07/20/20 10:35 Albumin/Globulin Ratio 1.5 (1.1-1.9) 07/20/20 10:35 Serum Ketones Negative 07/20/20 12:32 - EKG/XRAY/CT EKG: Vic, Sinus Comments: HR 54, nonspecidic st changes, nonspecific t wave. no stemi XRAY: chest - no acute cardiopulmonary pathology Departure - Departure Clinical Impression: Dyspnea Qualifiers: Dyspnea type: unspecified Qualified Code(s): R06.00 - Dyspnea, unspecified Time of Disposition: 12:34 Disposition: Discharge to Home or Self Care Departure Forms: ED Discharge - Pt. Copy, Patient Portal Self Enrollment Instructions: Shortness of Breath (Dyspnea), Breathing Exercises Activity: increase activity as tolerated Referrals: Juvencio Johnson MD [Primary Care Provider] - 1-2 Days Home Medications: Ambulatory Orders Aspirin [Aspirin Childrens] 81 mg PO BEDTIME 04/05/19 Clopidogrel Bisulfate 75 mg PO BEDTIME 04/05/19 Nitroglycerin 0.4 mg Tab [Nitrostat] 1 ea SL .Q5M PRN #1 bottle 04/05/19 Ropinirole Hydrochloride [Ropinirole HCl] 2 mg PO BEDTIME 04/05/19 Atorvastatin Calcium [Lipitor] 40 mg PO BEDTIME 05/06/20 Lisinopril 10 mg PO BEDTIME 05/06/20 Metoprolol Succinate [Metoprolol Succinate ER] 25 mg PO BEDTIME 05/06/20
--- NOTE | 2020-07-20 10:50 | RAD ---
EXAMINATION: Chest x-ray one view. INDICATION: Cough COMPARISON: 04/05/2019 TECHNIQUE: Frontal radiograph chest. FINDINGS: Overlying EKG leads and wires obscure portions of the lungs. Cervical spinal fusion hardware is seen and appears unchanged The cardiac silhouette is normal in size. No focal consolidative process or pulmonary edema. There is no pneumothorax. Moderate degenerative changes of the acromioclavicular joint spaces. IMPRESSION: No acute pulmonary findings. No change in aeration from prior study. Electronically signed by: Pedrito Keane MD 07/20/2020 10:49 AM CDT
[2020-07-20 13:49] VITALS: BP 151/91; TEMP 98.2; O2SAT 96
== END 2020-07-20 13:43 | disposition home or self-care (01) ==
LOC: ER 09:55
DX: R06.02 Shortness of breath (principal); R05 Cough; R00.1 Bradycardia, unspecified; I25.2 Old myocardial infarction; I25.10 Atherosclerotic heart disease of native coronary artery without angina pectoris; Z87.891 Personal history of nicotine dependence; Z79.82 Long term (current) use of aspirin; Z79.899 Other long term (current) drug therapy; Z20.828 Contact with and (suspected) exposure to other viral communicable diseases

== ENCOUNTER 2020-07-29 19:04 | Emergency (ER) | payer MEDICARE ==
[2020-07-29 19:33] VITALS: TEMP 98
[2020-07-29] MEDS ORDERED: SODIUM CHLORIDE 0.9% (FLUSH) 10 ML SYG IV PRN (19:34)
[2020-07-29] MEDS ORDERED: SODIUM CHLORIDE 0.9% 1000ML 1,000 ML IVS ONE (19:34)
--- NOTE | 2020-07-29 20:31 | CT ---
EXAM: Abdoment/Pelvis w/o Contrast CLINICAL INDICATION: Abdominal pain. COMPARISON: There is no previous study for comparison. TECHNIQUE: The CT scan was done using contiguous axial 2.5 mm noncontrast sections through the abdomen and pelvis. This exam was performed according to our departmental dose-optimization program, which includes automated exposure control, adjustment of the mA and/or kV according to patient size and/or use of iterative reconstruction technique. FINDINGS: The visualized portions of the lung bases right contain mild areas of subsegmental atelectasis but are otherwise clear. The liver, gallbladder, kidneys, adrenal glands, spleen, and pancreas have a normal noncontrast CT appearance. The aorta contains atherosclerotic calcifications without evidence of aneurysm. The appendix is normal. There is mild diverticulosis of the colon without findings of acute diverticulitis. The prostate gland is mildly enlarged measuring 4.2 x 4.9 cm. There are no dilated loops of small bowel, free air, free fluid, or abscess. IMPRESSION: 1. No evidence of an acute intra-abdominal process. 2. Diverticulosis. 3. Mildly enlarged prostate gland. Electronically signed by: Maykel García MD 07/29/2020 8:30 PM CDT
[2020-07-29] MEDS ORDERED: KETOROLAC TROMETHAMINE INJ 30 MG/ML VIAL IV ONE (20:55)
[2020-07-29] MEDS ORDERED: diazePAM INJ 10 MG/2 ML SYG IV ONE (21:01)
[2020-07-29] MEDS ORDERED: HYDROmorphone HCL INJ 2 MG/ML VIAL IV ONE (21:01)
--- NOTE | 2020-07-29 21:15 | ED.PDOC ---
History of Present Illness - General Chief Complaint: Abdominal Pain Stated Complaint: right lower quad pain and right flank pain Time Seen by Provider: 07/29/20 19:34 Source: patient, RN notes reviewed, Vital Signs reviewed Exam Limitations: no limitations - History of Present Illness Initial Comments: Patient is a 70-year-old white male who presents with complaints of 4 days of right flank pain and back pain. The pain is stabbing/throbbing in nature. It is waxing and waning in intensity. The intensity is severe at this time. It radiates to the right lower quadrant. Patient denies any hematuria. Patient denies any trauma. Timing/Duration: other - 4 days Severity: severe Improving Factors: nothing Worsening Factors: movement Associated Symptoms: denies symptoms Allergies/Adverse Reactions: Allergies NO KNOWN ALLERGY Allergy (Verified 07/20/20 10:41) Home Medications: Ambulatory Orders Aspirin [Aspirin Childrens] 81 mg PO BEDTIME 04/05/19 Clopidogrel Bisulfate 75 mg PO BEDTIME 04/05/19 Nitroglycerin 0.4 mg Tab [Nitrostat] 1 ea SL .Q5M PRN #1 bottle 04/05/19 Ropinirole Hydrochloride [Ropinirole HCl] 2 mg PO BEDTIME 04/05/19 Atorvastatin Calcium [Lipitor] 40 mg PO BEDTIME 05/06/20 Lisinopril 10 mg PO BEDTIME 05/06/20 Metoprolol Succinate [Metoprolol Succinate ER] 25 mg PO BEDTIME 05/06/20 Acetamin W/Cod #3 Tab [Tylenol w/CODEINE #3] 1 ea PO Q6H #16 tab 07/29/20 Cyclobenzaprine HCl [Flexeril] 10 mg PO TID #15 tab 07/29/20 Review of Systems - Review of Systems Constitutional: States: no symptoms reported, see HPI. Denies: chills, fever, malaise, weakness EENTM: States: no symptoms reported. Denies: eye pain, blurred vision, double vision Respiratory: States: no symptoms reported. Denies: cough, short of breath, stridor, wheezing Cardiology: States: no symptoms reported. Denies: chest pain, palpitations, syncope Gastrointestinal/Abdominal: States: see HPI, abdominal pain. Denies: diarrhea, nausea, vomiting Genitourinary: States: no symptoms reported. Denies: dysuria, frequency, hematuria Musculoskeletal: States: see HPI, back pain. Denies: neck pain Skin: States: no symptoms reported. Denies: change in color, rash Neurological: States: no symptoms reported. Denies: headache, tingling, tremors, weakness Endocrine: States: no symptoms reported. Denies: increased hunger, increased thirst, increased urine Hematologic/Lymphatic: States: no symptoms reported - Pt is on blood thinners, easy bleeding. Denies: blood clots All other Systems: No Change from Baseline Past Medical History (General) - Patient Medical History Hx Seizures: No Hx Stroke: No Hx Dementia: No Hx Asthma: No Hx of COPD: No Hx Cardiac Disorders: Yes - Hx MO Hx Congestive Heart Failure: No Hx Pacemaker: No Hx Hypertension: No Hx Thyroid Disease: No Hx Diabetes: No Hx Gastroesophageal Reflux: No Hx Renal Disease: No Hx Cancer: No Hx of HIV: No Hx Hepatitis C: No Hx MRSA: No Surgical History: other - Vaccination History Hx Tetanus, Diphtheria Vaccination: Yes Hx Influenza Vaccination: No Hx Pneumococcal Vaccination: No Immunizations Up to Date: Yes - Social History Hx Tobacco Use: Yes Hx Chewing Tobacco Use: No Hx Alcohol Use: Yes - FORMER Hx Substance Use: No Hx Substance Use Treatment: No Hx Depression: No Feels Threatened In Home Enviroment: No Feels Threatened In a Relationship: No Hx Physical Abuse: No Hx Emotional Abuse: No Hx Suspected Abuse: No - Activities of Daily Living Hospice Agency (if applicable):: None - Female History Patient is a Female of Child Bearing Age (10 -59 yrs old): No Patient : No Family Medical History - Family History Mother Family History: Unknown Hx Cardiac Disease: Yes - mom Hx Family Cancer: Yes - dad-colon;mom-lung Physical Exam - Physical Exam General Appearance: Alert, Anxious, Obvious distress, Restless, Unkempt, Well Developed, Well Hydrated, Well Nourished Eye Exam: bilateral normal Ears, Nose, Throat: hearing grossly normal, normal ENT inspection, normal pharynx Neck: non-tender, full range of motion, supple Respiratory: chest non-tender, lungs clear, normal breath sounds, no respiratory distress, no accessory muscle use Cardiovascular/Chest: normal peripheral pulses, regular rate, rhythm, no edema, no gallop, no JVD, no murmur Peripheral Pulses: radial,right: 2+, radial,left: 2+ Gastrointestinal/Abdominal: normal bowel sounds, non tender, soft Back Exam: no CVA tenderness, no vertebral tenderness, decreased range of motion, muscle spasm - Right lumbar area Extremity: normal range of motion, non-tender, normal inspection 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 07/29/20 22:05 Patient is markedly improved after IV pain medicine including Toradol, Dilaudid and IV Valium. Plan on discharge home with a prescription for muscle relaxers and pain pills. I discussed this plan of care with the patient and he voices understanding and agreement. Alejo Nicole M.D. #[id number] - Results/Orders Results/Orders: 07/29/20 19:34 IV Care:Saline Lock per Protoc QSHIFT Sodium Chloride 0.9% (Flush) [Saline Flush Syringe] 10 ml IV PRN PRN URINALYSIS Stat 07/29/20 19:45 EKG STAT Laboratory Results - last 24 hr 07/29/20 07/29/20 07/29/20 19:24 19:24 19:24 WBC 7.4 RBC 4.86 Hgb 15.0 Hct 44.0 MCV 90.5 MCH 30.9 MCHC 34.2 RDW 13.6 Plt Count 304 MPV 6.9 L Absolute Neuts (auto) 5.40 Absolute Lymphs (auto) 1.10 Absolute Monos (auto) 0.70 Absolute Eos (auto) 0.10 Absolute Basos (auto) 0.10 Neutrophils % 73.4 Lymphocytes % 15.2 L Monocytes % 9.2 H Eosinophils % 1.3 Basophils % 0.9 Sodium 140 Potassium 4.1 Chloride 103 Carbon Dioxide 28 Anion Gap 13.1 BUN 17 Creatinine 0.84 BUN/Creatinine Ratio 20.2 H Random Glucose 107 H Serum Osmolality 281.4 Calcium 9.1 Total Bilirubin 0.4 Direct Bilirubin 0.1 Indirect Bilirubin 0.3 AST 24 ALT 24 Alkaline Phosphatase 53 Serum Total Protein 7.7 Albumin 4.8 Lipase 32 EXAM: Abdoment/Pelvis w/o Contrast CLINICAL INDICATION: Abdominal pain. COMPARISON: There is no previous study for comparison. TECHNIQUE: The CT scan was done using contiguous axial 2.5 mm noncontrast sections through the abdomen and pelvis. This exam was performed according to our departmental dose- optimization program, which includes automated exposure control, adjustment of the mA and/or kV according to patient size and/or use of iterative reconstruction technique. FINDINGS: The visualized portions of the lung bases right contain mild areas of subsegmental atelectasis but are otherwise clear. The liver, gallbladder, kidneys, adrenal glands, spleen, and pancreas have a normal noncontrast CT appearance. The aorta contains atherosclerotic calcifications without evidence of aneurysm. The appendix is normal. There is mild diverticulosis of the colon without findings of acute diverticulitis. The prostate gland is mildly enlarged measuring 4.2 x 4.9 cm. There are no dilated loops of small bowel, free air, free fluid, or abscess. IMPRESSION: 1. No evidence of an acute intra-abdominal process. 2. Diverticulosis. 3. Mildly enlarged prostate gland. Electronically signed by: Maykel García MD 07/29/2020 8:30 PM Vital Signs 07/29/20 07/29/20 07/29/20 19:07 20:04 21:00 Temperature 98.0 F Pulse Rate 63 Pulse Rate [ 69 63 74 pulse ox] Respiratory 20 18 16 Rate Blood Pressure 170/90 180/101 188/105 [Left Arm] O2 Sat by Pulse 96 97 96 Oximetry Departure - Departure Clinical Impression: Lumbar radiculopathy Lumbar back sprain Qualifiers: Encounter type: initial encounter Qualified Code(s): S33.5XXA - Sprain of ligaments of lumbar spine, initial encounter Time of Disposition: 22:08 Disposition: Discharge to Home or Self Care Condition: Good Departure Forms: ED Discharge - Pt. Copy, Patient Portal Self Enrollment Instructions: DI for Abdominal Pain-Adult, Low Back Pain (DC), Radiculopathy (DC) Diet: resume usual diet Activity: increase activity as tolerated Referrals: Juvencio Johnson MD [Primary Care Provider] - 1-5 Days Prescriptions: Cyclobenzaprine HCl [Flexeril] 10 mg PO TID #15 tab Acetamin W/Cod #3 Tab [Tylenol w/CODEINE #3] 1 ea PO Q6H #16 tab Home Medications: Ambulatory Orders Aspirin [Aspirin Childrens] 81 mg PO BEDTIME 04/05/19 Clopidogrel Bisulfate 75 mg PO BEDTIME 04/05/19 Nitroglycerin 0.4 mg Tab [Nitrostat] 1 ea SL .Q5M PRN #1 bottle 04/05/19 Ropinirole Hydrochloride [Ropinirole HCl] 2 mg PO BEDTIME 04/05/19 Atorvastatin Calcium [Lipitor] 40 mg PO BEDTIME 05/06/20 Lisinopril 10 mg PO BEDTIME 05/06/20 Metoprolol Succinate [Metoprolol Succinate ER] 25 mg PO BEDTIME 05/06/20 Acetamin W/Cod #3 Tab [Tylenol w/CODEINE #3] 1 ea PO Q6H #16 tab 07/29/20 Cyclobenzaprine HCl [Flexeril] 10 mg PO TID #15 tab 07/29/20
[2020-07-29 22:20] VITALS: BP 148/82; O2SAT 94
== END 2020-07-29 22:20 | disposition home or self-care (01) ==
LOC: ER 19:04
DX: S33.5XXA Sprain of ligaments of lumbar spine, initial encounter (principal); M54.16 Radiculopathy, lumbar region; I25.2 Old myocardial infarction; R94.31 Abnormal electrocardiogram [ECG] [EKG]; Z79.82 Long term (current) use of aspirin; Z79.899 Other long term (current) drug therapy; Z87.891 Personal history of nicotine dependence
CPT/HCPCS: 36415; 74176; 80048; 80076; 83690; 85025; 93005; A4216; J1170; J1885; J3360; J7030

== ENCOUNTER → 2020-09-17 | Outpatient (CLI) | payer MEDICARE ==
--- NOTE | 2020-09-17 14:13 | US ---
EXAM DESCRIPTION: Soft Tissue,Abdomen CLINICAL HISTORY: RIGHT UPPER QUAD PN COMPARISON: CT abdomen and pelvis 07/29/2020 TECHNIQUE: Sonographic evaluation with high frequency transducer using both euceda-scale and Doppler technology. FINDINGS: Sonographic evaluation of the region of palpable concern and pain along the right upper anterior abdominal wall demonstrate an approximate 2.1 x 1 cm hypoechoic region within the abdominal wall (without internal vascularity) which could represent muscle tear (especially given patient's pain in this region). The fascial plane deep to the abdominal wall musculature appears to be intact, this is unlikely a small fat containing hernia. No drainable fluid collection. IMPRESSION: 1. Right anterior abdominal muscle hypoechoic area may represent a focal muscle tear. Clinical correlation is requested. Electronically signed by: Rodolfo Cronin DO 09/17/2020 2:12 PM [facility]
== END ==
LOC: US 12:44
PROVIDERS: ATTEND Family Medicine
DX: R10.11 Right upper quadrant pain (principal)

== ENCOUNTER → 2020-10-01 | Outpatient (CLI) | payer MEDICARE | LOC: YCFC.O 10:29 | PROVIDERS: ATTEND Nurse Practitioner Family | DX: U07.1 COVID-19 (principal); J44.9 Chronic obstructive pulmonary disease, unspecified; I10 Essential (primary) hypertension; Z20.828 Contact with and (suspected) exposure to other viral communicable diseases; Z23 Encounter for immunization | CPT/HCPCS: 87486; 87581; 87633; 87635; M0239 ==